=== PATIENT | male | born 1975 | race African-American/Black ===

== ENCOUNTER 2021-09-19 04:00 | Emergency (ER) | payer MEDICAID ==
[~2021-09-19] VITALS: Ht 190.5 cm; Wt 127.0 kg
[2021-09-19] MEDS ORDERED: ENALAPRIL 1.25MG/ML VIAL 1ML IV NR (04:15)
[2021-09-19] MEDS ORDERED: ENALAPRIL 2.5MG/2ML VIAL 2ML IV ONE (04:15)
[2021-09-19 04:35] LABS: BASOPHILS % 0.7 % (0.0-2.0); EOSINOPHILS % 2.5 % (0.0-5.0); HEMATOCRIT. 38.5 % (42.0-52.0); HEMOGLOBIN. 12.8 g/dL (14.0-18.0); LYMPHOCYTES % 29.5 % (20.0-50.0); MEAN CORPUSCULAR HEMOGLOBIN 27.4 pg (28.0-32.0); MEAN CORPUSCULAR VOLUME 82.6 fL (80.0-94.0); MEAN PLATELET VOLUME 7.3 fl (7.4-10.4); MONOCYTES % 11.9 % (2.0-8.0); NEUTROPHILS % 55.4 % (40.0-76.0); PLATELET 291 x1000/uL (130-400); RED BLOOD CELL COUNT 4.66 mill/uL (4.7-6.1); RED CELL DISTRIBUTION WIDTH 13.6 % (11.6-14.6)
[2021-09-19 05:02] LABS: CHLORIDE 105 mEq/L (98-107)
[2021-09-19] MEDS ORDERED: NITROGLYCERIN OINT 1GM/INCH UDPKT TD ONE (05:30)
[2021-09-19] MEDS ORDERED: ACETAMINOPHEN 325MG TABLET PO PRN ×2 (07:15)
[2021-09-19] MEDS ORDERED: KETOROLAC 15MG/ML VIAL IV PRN (07:15)
[2021-09-19] MEDS ORDERED: ZOLPIDEM TARTRATE 5MG TABLET PO PRN (07:15)
[2021-09-19] MEDS ORDERED: NITROGLYCERIN 0.4MG TABLET SL SL PRN (07:15)
[2021-09-19] MEDS ORDERED: ONDANSETRON HCL 4MG/2ML INJ IV PRN (07:15)
[2021-09-19] MEDS ORDERED: MAGNESIUM/ALUMINUM HYDROXIDE/SIMETHICONE 30ML UDC PO PRN (07:15)
[2021-09-19] MEDS ORDERED: DOCUSATE SODIUM 100MG CAPSULE PO PRN (07:15)
[2021-09-19] MEDS ORDERED: IPRATROPIUM/ALBUTEROL 0.5-3(2.5)MG/3ML NEB NEB PRN (07:15)
[2021-09-19] MEDS ORDERED: CLONIDINE 0.1MG TABLET PO PRN (07:15)
[2021-09-19 08:19] LABS: ETHANOL BLOOD < 10 mg/dL; LDL CHOLESTEROL 154 mg/dL (5-100)
[2021-09-19 08:31] LABS: HDL CHOLESTEROL 35 mg/dL (40-59)
[2021-09-19 08:47] LABS: VITAMIN B12 SERUM 431 pg/mL (211-911)
[2021-09-19] MEDS ORDERED: FAMOTIDINE 20MG TABLET PO SCH (09:00)
[2021-09-19] MEDS ORDERED: ASPIRIN 325MG EC TABLET PO SCH (09:00)
[2021-09-19] MEDS ORDERED: ENOXAPARIN 30MG/0.3ML SYR SUBCUT SCH (09:00)
[2021-09-19 11:17] VITALS: BP 139/92
== END 2021-09-19 14:21 | disposition left against medical advice (07) ==
LOC: ER 04:27 → ENRESERV 20:27 → CANRESERV 20:27 → CANBEDREQ 09-20 02:55
DX: R07.89 Other chest pain (principal); I10 Essential (primary) hypertension; D64.9 Anemia, unspecified; R73.03 Prediabetes; R94.31 Abnormal electrocardiogram [ECG] [EKG]; E66.01 Morbid (severe) obesity due to excess calories; E83.51 Hypocalcemia
CPT/HCPCS: 36415; 71045; 80053; 80061; 80320; 82607; 83036; 83880; 84443; 84484; 85025; 85379; 93005; 93970; 96372; 99291; J1650; J3490; G0480

== ENCOUNTER 2024-11-07 01:08 | Emergency (ER) | payer MEDICAID, OTHER ==
[~2024-11-07] VITALS: Ht 190.5 cm; Wt 148.0 kg
[2024-11-07 01:15] VITALS: BP 156/94; PULSE 83; RESP 16; TEMP 37; O2SAT 98
[2024-11-07] MEDS ORDERED: ASPIRIN 325MG EC TABLET PO ONE (01:30)
== END 2024-11-07 03:14 | disposition left against medical advice (07) ==
LOC: ER 01:08 → CMPBEDREQ 08:30
DX: R07.89 Other chest pain (principal); I10 Essential (primary) hypertension; Z79.899 Other long term (current) drug therapy
CPT/HCPCS: 71045; 93005; 99283